=== PATIENT | female | born 1975 | race Caucasian/White ===

== ENCOUNTER 2017-12-29 19:10 | Emergency (ER) | payer OTHER ==
[~2017-12-29] VITALS: Ht 154.9 cm; Wt 116.3 kg
[~2017-12-29 19:10] MED LIST: BUSPAR15 MG PO; CLONAZEPAM0.5 MG PO; FLUOXETINE HCL40 MG PO; HYDROCODON-ACE1 EAC7 PO; HYDROCODON-ACE1 EAC9 PO; LIDEX 0.05% CRE60 GM TP; LYRICA150 MG PO; MAGNESIUM250 MG PO; PEN-VEE K,VEET500 MG PO; PEPCID20 MG PO; PERCOCET 5/31 TABLET PO
[2017-12-29 21:09] VITALS: BP 135/71
== END 2017-12-29 21:11 | disposition home or self-care (01) ==
LOC: EME 19:10
DX: S86.891A Other injury of other muscle(s) and tendon(s) at lower leg level, right leg, initial encounter (principal); W10.9XXA Fall (on) (from) unspecified stairs and steps, initial encounter; Y93.01 Activity, walking, marching and hiking; E11.9 Type 2 diabetes mellitus without complications; Z87.891 Personal history of nicotine dependence
CPT/HCPCS: 73590; 73610; 73630; 99281; 99284